=== PATIENT | female | born 2000 | race Caucasian/White ===

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

== ENCOUNTER 2022-04-25 16:11 | Emergency (ER) | payer OTHER ==
[2022-04-25 16:28] VITALS: RESP 16
--- NOTE | 2022-04-25 17:22 | ED ---
Psych HPI - General Source: patient, family Mode of arrival: ambulatory <Harper Harkins - Last Filed: 04/25/22 17:19> - General Source: RN notes reviewed, old records reviewed <Lyle Ward - Last Filed: 04/25/22 20:45> <GerardodionAdalberto - Last Filed: 04/25/22 22:40> - General Chief Complaint: Psychiatric Symptoms Stated Complaint: Mental health eval Time Seen by Provider: 04/25/22 18:50 - History of Present Illness Initial Comments: Patient is a 21 year old female who presents to the emergency department for psychiatric evaluation. Patient reports anxiety and depression for years with worsening the past couple weeks. Admits to SI without plan or intention. No HI. No visual or auditory hallucinations. No alcohol, tobacco, or illicit drug use. Patient currently being treated for UTI with abx. Symptoms improving. No fever, chills, abdominal pain, nausea, vomiting. (Harper Harkins) This is a 21-year-old female presents emergency department because she got upset at home said she was suicidal and said she would be better off . Patient did kick and punch a hole in the wall. Patient states she's never attempted suicide in the past. And they brought her into the emergency department. Patient states she has been diagnosed with depression and anxiety but she's not been treated for it. Patient states she does see a counselor. Patient states she was recently diagnosed with urinary tract infection and possibly could be though she did just have a period 4 days ago. Patient denies any fever chills or cough per patient denies any headache. Patient denies any abdominal pain patient denies any chest pain patient denies any difficulty breathing. (Lyle Ward) - Related Data Home Medications Medication Instructions Recorded Confirmed Cephalexin [Keflex] 1,000 mg PO Q12HR 04/25/22 04/25/22 Allergies Allergy/AdvReac Type Severity Reaction Status Date / Time shellfish derived [Shellfish] Allergy Anaphylaxis Verified 04/25/22 20:20 Review of Systems ROS Other: All systems not noted in ROS Statement are negative. <Harper Harkins - Last Filed: 04/25/22 17:19> ROS Other: All systems not noted in ROS Statement are negative. <Lyle Ward - Last Filed: 04/25/22 20:45> ROS Other: All systems not noted in ROS Statement are negative. <Adalberto Newman - Last Filed: 04/25/22 22:40> ROS Statement: Those systems with pertinent positive or pertinent negative responses have been documented in the HPI. Past Medical History Past Medical History: No Reported History History of Any Multi-Drug Resistant Organisms: None Reported Past Surgical History: No Surgical Hx Reported Past Psychological History: No Psychological Hx Reported Smoking Status: Never smoker Past Alcohol Use History: None Reported Past Drug Use History: None Reported <ShahanaHarper - Last Filed: 04/25/22 17:19> General Exam Limitations: no limitations <Harper Harkins - Last Filed: 04/25/22 17:19> <Lyle Ward - Last Filed: 04/25/22 20:45> - General Exam Comments Initial Comments: GENERAL: Patient is well-developed and well-nourished. Patient is nontoxic and well- hydrated and is in no acute distress. ENT: Neck is soft and supple. No significant lymphadenopathy is noted. Oropharynx is clear. Moist mucous membranes. Neck has full range of motion without eliciting any pain. EYES: The sclera were anicteric and conjunctiva were pink and moist. Extraocular movements were intact and pupils were equal round and reactive to light. Eyelids were unremarkable. PULMONARY: Unlabored respirations. Good breath sounds bilaterally. No audible rales rhonchi or wheezing was noted. CARDIOVASCULAR: There is a regular rate and rhythm without any murmurs gallops or rubs. ABDOMEN: Soft and nontender with normal bowel sounds. SKIN: Skin is clear with no lesions or rashes and otherwise unremarkable. NEUROLOGIC: Patient is alert and oriented x3. Cranial nerves II through XII are grossly intact. Motor and sensory are also intact. Normal speech, volume and content. Symmetrical smile. MUSCULOSKELETAL: Normal extremities with adequate strength and full range of motion. LYMPHATICS: No significant lymphadenopathy is noted PSYCHIATRIC: Patient states she's not suicidal now but she did make statements earlier and does occasionally feel suicidal (Lyle Ward) Course Vital Signs 04/25/22 16:25 Temperature 98.5 F Pulse Rate 83 Respiratory 16 Rate Blood Pressure 153/80 O2 Sat by Pulse 98 Oximetry Medical Decision Making <Lyle Ward - Last Filed: 04/25/22 20:45> <Adalberto Newman - Last Filed: 04/25/22 22:40> - Medical Decision Making Dr. Taylor will be taking over the care of this patient at 9 PM (Lyle Ward) Patient has had EPS evaluation and deemed stable for continued outpatient care. They have developed safety plan. Patient will return should there be any difficulty. (Adalberto Newman) - Lab Data Lab Results 04/25/22 04/25/22 Range/Units 19:10 19:10 Urine Color Yellow Urine Appearance Cloudy H (Clear) Urine pH 6.0 (5.0-8.0) Ur Specific [place] 1.020 (1.001-1.035) Urine Protein Trace H (Negative) Urine Glucose (UA) Negative (Negative) Urine Ketones 2+ H (Negative) Urine Blood Large H (Negative) Urine Nitrite Negative (Negative) Urine Bilirubin Negative (Negative) Urine Urobilinogen <2.0 (<2.0) mg/dL Ur Leukocyte Esterase Moderate H (Negative) Urine RBC >182 H (0-5) /hpf Urine WBC 11 H (0-5) /hpf Ur Squamous Epith Cells 12 H (0-4) /hpf Urine Mucus Moderate H (None) /hpf Urine HCG, Qual Not Detected (Not Detectd) Disposition <Harper Harkins - Last Filed: 04/25/22 17:19> <Lyle Ward - Last Filed: 04/25/22 20:45> Is patient prescribed a controlled substance at d/c from ED?: No <Adalberto Newman - Last Filed: 04/25/22 22:40> Clinical Impression: Mood disorder Disposition: HOME SELF-CARE Condition: Good Instructions (If sedation given, give patient instructions): Mood Disorders (ED) Referrals: Mathew El DO [Primary Care Provider] - 1-2 days
[2022-04-25 19:38] LABS: Appearance,Urine Cloudy (Clear); Bilirubin,Urine Negative (Negative); Blood,Urine Large (Negative); Color,Urine Yellow; Glucose,Urine (UA) Negative (Negative); Ketones,Urine 2+ (Negative); Leukocyte Esterase,Urine Moderate (Negative); Mucus,Urine Moderate /hpf; Nitrite,Urine Negative (Negative); Protein,Urine Trace (Negative); RBC,Urine >182 /hpf (0-5); Squamous Epithelial Cell,Urine 12 /hpf (0-4); Urobilinogen,Urine <2.0 mg/dL (<2.0); WBC,Urine 11 /hpf (0-5)
[2022-04-25] MEDS ORDERED: CEPHALEXIN 500 MG CAP PO STA (20:01)
[2022-04-25 22:50] VITALS: BP 129/78; PULSE 79; TEMP 98.4
== END 2022-04-25 22:50 | disposition home or self-care (01) ==
LOC: EC 16:11
DX: F39 Unspecified mood [affective] disorder (principal); Z91.013 Allergy to seafood
CPT/HCPCS: 81001; 81025; 82075; 87086; 99285

== ENCOUNTER 2022-07-28 04:57 | Emergency (ER) | payer BC, OTHER ==
[2022-07-28 05:05] VITALS: RESP 16; TEMP 98
[2022-07-28] MEDS ORDERED: SODIUM CHLORIDE 0.9% 1,000 ML IV STA (05:25)
[2022-07-28 05:55] LABS: Basophils % (A) 0 %; Eosinophils # (A) 0.1 k/uL (0-0.7); Eosinophils % (A) 1 %; HCT 38.9 % (34.0-46.0); HGB 13.7 gm/dL (11.4-16.0); Lymphocytes % (A) 12 %; MCH 32.1 pg (25.0-35.0); MCHC 35.3 g/dL (31.0-37.0); Mean Platelet Volume 7.6; Monocytes # (A) 0.2 k/uL (0-1.0); Monocytes % (A) 3 %; Neutrophils # (A) 6.9 k/uL (1.3-7.7); Neutrophils % (A) 83 %; Platelet Count 277 k/uL (150-450); RBC 4.27 m/uL (3.80-5.40); RDW 12.1 % (11.5-15.5); WBC 8.2 k/uL (4.0-11.0)
[2022-07-28 06:05] LABS: ALT 20 U/L (4-34); AST 24 U/L (14-36); African American GFR (CKD) >90 (>60 ml/min/1.73 sqM); Albumin 4.3 g/dL (3.5-5.0); Alcohol <10 mg/dL; Alkaline Phosphatase 59 U/L (38-126); Anion Gap 12 mmol/L; Blood Urea Nitrogen 7 mg/dL (7-17); Calcium 9.1 mg/dL (8.4-10.2); Carbon Dioxide 21 mmol/L (22-30); Chloride 106 mmol/L (98-107); Creatine Kinase 55 U/L (30-135); Glucose 118 mg/dL (74-99); Magnesium 1.9 mg/dL (1.6-2.3); Non-African American GFR(CKD) >90 (>60 ml/min/1.73 sqM); Sodium 139 mmol/L (137-145); Total Bilirubin 0.5 mg/dL (0.2-1.3)
[2022-07-28 06:08] LABS: Amorphous Sediment,Urine Few /hpf; Appearance,Urine Cloudy (Clear); Bacteria,Urine Occasional /hpf; Bilirubin,Urine Negative (Negative); Blood,Urine Negative (Negative); Color,Urine Yellow; Glucose,Urine (UA) Negative (Negative); Hyaline Casts,Urine 2 /lpf (0-2); Ketones,Urine Negative (Negative); Leukocyte Esterase,Urine Large (Negative); Mucus,Urine Moderate /hpf; Nitrite,Urine Negative (Negative); Protein,Urine Trace (Negative); RBC,Urine 2 /hpf (0-5); Specific Gravity,Urine 1.012 (1.001-1.035); Squamous Epithelial Cell,Urine 13 /hpf (0-4); Urobilinogen,Urine <2.0 mg/dL (<2.0); WBC,Urine 19 /hpf (0-5)
--- NOTE | 2022-07-28 06:29 | ED ---
General Adult HPI - General Chief complaint: Seizure Stated complaint: Seizure Time Seen by Provider: 07/28/22 05:00 Source: patient Mode of arrival: ambulatory - History of Present Illness Initial comments: 22 year old female presents after an episode of altered mental status. States that she was using shrooms tonight and he friend witnessed her go unconscious. No trauma from passing out. There was no shaking. She was only out for a few seconds. She denies using any other drugs. Denies concern for . No history of seizures. Denies chest pain or shortness of breath. - Related Data Home Medications Medication Instructions Recorded Confirmed Cephalexin [Keflex] 1,000 mg PO Q12HR 04/25/22 04/25/22 Allergies Allergy/AdvReac Type Severity Reaction Status Date / Time shellfish derived [Shellfish] Allergy Anaphylaxis Verified 07/28/22 05:05 Review of Systems ROS Statement: Those systems with pertinent positive or pertinent negative responses have been documented in the HPI. ROS Other: All systems not noted in ROS Statement are negative. Past Medical History Past Medical History: Syncope History of Any Multi-Drug Resistant Organisms: None Reported Past Surgical History: No Surgical Hx Reported Past Psychological History: No Psychological Hx Reported Smoking Status: Never smoker Past Alcohol Use History: Rare Past Drug Use History: Marijuana General Exam General appearance: alert, in no apparent distress Head exam: Present: atraumatic, normocephalic, normal inspection Eye exam: Present: normal appearance, PERRL, EOMI. Absent: scleral icterus, conjunctival injection, periorbital swelling ENT exam: Present: normal exam, mucous membranes moist Neck exam: Present: normal inspection. Absent: tenderness, meningismus, lymphadenopathy Respiratory exam: Present: normal lung sounds bilaterally. Absent: respiratory distress, wheezes, rales, rhonchi, stridor Cardiovascular Exam: Present: regular rate, normal rhythm, normal heart sounds. Absent: systolic murmur, diastolic murmur, rubs, gallop, clicks GI/Abdominal exam: Present: soft, normal bowel sounds. Absent: distended, tenderness, guarding, rebound, rigid Extremities exam: Present: normal inspection, full ROM, normal capillary refill. Absent: tenderness, pedal edema, joint swelling, calf tenderness Back exam: Present: normal inspection Neurological exam: Present: alert, oriented X3, CN II-XII intact Psychiatric exam: Present: normal affect, normal mood Skin exam: Present: warm, dry, intact, normal color. Absent: rash Course Vital Signs 07/28/22 07/28/22 04:58 07:10 Temperature 98.0 F Pulse Rate 80 85 Respiratory 16 16 Rate Blood Pressure 116/81 119/68 O2 Sat by Pulse 99 98 Oximetry EKG Findings - EKG Comments: EKG Findings:: EKG demonstrates sinus rhythm with a rate of 76. IA interval 142. QRS 81. QTC of 412. No acute ST segment elevations or depressions Medical Decision Making - Medical Decision Making Was pt. sent in by a medical professional or institution (, HUNTER, DIRECTOR HEART, urgent care, hospital, or snf...) When possible be specific @ -No Did you speak to anyone other than the patient for history (EMS, parent, family, police, friend...)? What history was obtained from this source @ -Patients friend at bedside Did you review nursing and triage notes (agree or disagree)? Why? @ -I reviewed and agree with nursing and triage notes Were old charts reviewed (outside hosp., previous admission, EMS record, old EKG, old radiological studies, urgent care reports/EKG's, snf records)? Report findings @ -No old charts were reviewed Differential Diagnosis (chest pain, altered mental status, abdominal pain women, abdominal pain men, vaginal bleeding, weakness, fever, dyspnea, syncope, headache, dizziness, GI bleed, back pain, seizure, CVA, palpatations, mental health, musculoskeletal)? @ -seizure, syncope, near syncope, drug overdose EKG interpreted by me (3pts min.). @ -Yes X-rays interpreted by me (1pt min.). @ -No CT interpreted by me (1pt min.). @ -No U/S interpreted by me (1pt. min.). @ -None done What testing was considered but not performed or refused? (CT, X-rays, U/S, labs)? Why? @ -None What meds were considered but not given or refused? Why? @ -None Did you discuss the management of the patient with other professionals (professionals i.e. HUNTER Snell, DIRECTOR HEART, lab, RT, psych nurse, social services designee, engraver copperplate, teacher, dispatch officer, business case analyst)? Give summary @ -No Was smoking cessation discussed for >3mins.? @ -No Was critical care preformed (if so, how long)? @ -No Were there social determinants of health that impacted care today? How? (Ho melessness, low income, unemployed, alcoholism, drug addiction, transportation, low edu. Level, literacy, decrease access to med. care, fpc, rehab)? @ -No Was there de-escalation of care discussed even if they declined (Discuss DNR or withdrawal of care, Hospice)? DNR status @ -No What co-morbidities impacted this encounter? (DM, HTN, Smoking, COPD, CAD, Cancer, CVA, ARF, Chemo, Hep., AIDS, mental health diagnosis, sleep apnea, morbid obesity)? @ -None Was patient admitted / discharged? Hospital course, mention meds given and route, prescriptions, significant lab abnormalities, going to OR and other pertinent info. @ -Discharged. Instructed not to drive. Needs to follow up with PCP for further workup Undiagnosed new problem with uncertain prognosis? @ -yes Drug Therapy requiring intensive monitoring for toxicity (Heparin, Nitro, Insulin, Cardizem)? @ -No Were any procedures done? @ -No Diagnosis/symptom? @ -acute syncope, hallucinogen use Acute, or Chronic, or Acute on Chronic? @ -acute Uncomplicated (without systemic symptoms) or Complicated (systemic symptoms)? @ -complicated Side effects of treatment? @ -No Exacerbation, Progression, or Severe Exacerbation? @ -No Poses a threat to life or bodily function? How? (Chest pain, [place], [place], pneumonia, PE, COPD, DKA, ARF, appy, cholecystitis, CVA, Diverticulitis, Homicidal, Suic idal, threat to staff... and all critical care pts) @ -yes - Lab Data Result diagrams: 07/28/22 05:45 07/28/22 05:45 Lab Results 07/28/22 07/28/22 07/28/22 Range/Units 05:45 05:45 05:45 WBC 8.2 (4.0-11.0) k/uL RBC 4.27 (3.80-5.40) m/uL Hgb 13.7 (11.4-16.0) gm/dL Hct 38.9 (34.0-46.0) % MCV 91.0 (80.0-100.0) fL MCH 32.1 (25.0-35.0) pg MCHC 35.3 (31.0-37.0) g/dL RDW 12.1 (11.5-15.5) % Plt Count 277 (150-450) k/uL MPV 7.6 Neutrophils % 83 % Lymphocytes % 12 % Monocytes % 3 % Eosinophils % 1 % Basophils % 0 % Neutrophils # 6.9 (1.3-7.7) k/uL Lymphocytes # 1.0 (1.0-4.8) k/uL Monocytes # 0.2 (0-1.0) k/uL Eosinophils # 0.1 (0-0.7) k/uL Basophils # 0.0 (0-0.2) k/uL Sodium 139 (137-145) mmol/L Potassium 4.0 (3.5-5.1) mmol/L Chloride 106 (98-107) mmol/L Carbon Dioxide 21 L (22-30) mmol/L Anion Gap 12 mmol/L BUN 7 (7-17) mg/dL Creatinine 0.46 L (0.52-1.04) mg/dL Est GFR (CKD-EPI)AfAm >90 (>60 ml/min/1.73 sqM) Est GFR (CKD-EPI)NonAf >90 (>60 ml/min/1.73 sqM) Glucose 118 H (74-99) mg/dL Lactic Ac Sepsis Rflx Plasma Lactic Acid Sunday 2.1 H* (0.7-2.0) mmol/L Calcium 9.1 (8.4-10.2) mg/dL Magnesium 1.9 (1.6-2.3) mg/dL Total Bilirubin 0.5 (0.2-1.3) mg/dL AST 24 (14-36) U/L ALT 20 (4-34) U/L Alkaline Phosphatase 59 (38-126) U/L Creatine Kinase 55 (30-135) U/L Total Protein 7.0 (6.3-8.2) g/dL Albumin 4.3 (3.5-5.0) g/dL Urine Color Urine Appearance (Clear) Urine pH (5.0-8.0) Ur Specific [place] (1.001-1.035) Urine Protein (Negative) Urine Glucose (UA) (Negative) Urine Ketones (Negative) Urine Blood (Negative) Urine Nitrite (Negative) Urine Bilirubin (Negative) Urine Urobilinogen (<2.0) mg/dL Ur Leukocyte Esterase (Negative) Urine RBC (0-5) /hpf Urine WBC (0-5) /hpf Ur Squamous Epith Cells (0-4) /hpf Amorphous Sediment (None) /hpf Urine Bacteria (None) /hpf Hyaline Casts (0-2) /lpf Urine Mucus (None) /hpf Urine HCG, Qual (Not Detectd) Urine Opiates Screen (NotDetected) Ur Oxycodone Screen (NotDetected) Urine Methadone Screen (NotDetected) Ur Propoxyphene Screen (NotDetected) Ur Barbiturates Screen (NotDetected) U Tricyclic Antidepress (NotDetected) Ur Phencyclidine Scrn (NotDetected) Ur Amphetamines Screen (NotDetected) U Methamphetamines Scrn (NotDetected) U Benzodiazepines Scrn (NotDetected) Urine Cocaine Screen (NotDetected) U Marijuana (THC) Screen (NotDetected) Serum Alcohol <10 mg/dL 07/28/22 07/28/22 07/28/22 Range/Units 05:46 05:46 06:13 WBC (4.0-11.0) k/uL RBC (3.80-5.40) m/uL Hgb (11.4-16.0) gm/dL Hct (34.0-46.0) % MCV (80.0-100.0) fL MCH (25.0-35.0) pg MCHC (31.0-37.0) g/dL RDW (11.5-15.5) % Plt Count (150-450) k/uL MPV Neutrophils % % Lymphocytes % % Monocytes % % Eosinophils % % Basophils % % Neutrophils # (1.3-7.7) k/uL Lymphocytes # (1.0-4.8) k/uL Monocytes # (0-1.0) k/uL Eosinophils # (0-0.7) k/uL Basophils # (0-0.2) k/uL Sodium (137-145) mmol/L Potassium (3.5-5.1) mmol/L Chloride (98-107) mmol/L Carbon Dioxide (22-30) mmol/L Anion Gap mmol/L BUN (7-17) mg/dL Creatinine (0.52-1.04) mg/dL Est GFR (CKD-EPI)AfAm (>60 ml/min/1.73 sqM) Est GFR (CKD-EPI)NonAf (>60 ml/min/1.73 sqM) Glucose (74-99) mg/dL Lactic Ac Sepsis Rflx Y Plasma Lactic Acid Sunday (0.7-2.0) mmol/L Calcium (8.4-10.2) mg/dL Magnesium (1.6-2.3) mg/dL Total Bilirubin (0.2-1.3) mg/dL AST (14-36) U/L ALT (4-34) U/L Alkaline Phosphatase (38-126) U/L Creatine Kinase (30-135) U/L Total Protein (6.3-8.2) g/dL Albumin (3.5-5.0) g/dL Urine Color Yellow Urine Appearance Cloudy H (Clear) Urine pH 7.0 (5.0-8.0) Ur Specific [place] 1.012 (1.001-1.035) Urine Protein Trace H (Negative) Urine Glucose (UA) Negative (Negative) Urine Ketones Negative (Negative) Urine Blood Negative (Negative) Urine Nitrite Negative (Negative) Urine Bilirubin Negative (Negative) Urine Urobilinogen <2.0 (<2.0) mg/dL Ur Leukocyte Esterase Large H (Negative) Urine RBC 2 (0-5) /hpf Urine WBC 19 H (0-5) /hpf Ur Squamous Epith Cells 13 H (0-4) /hpf Amorphous Sediment Few H (None) /hpf Urine Bacteria Occasional H (None) /hpf Hyaline Casts 2 (0-2) /lpf Urine Mucus Moderate H (None) /hpf Urine HCG, Qual Not Detected (Not Detectd) Urine Opiates Screen Not Detected (NotDetected) Ur Oxycodone Screen Not Detected (NotDetected) Urine Methadone Screen Not Detected (NotDetected) Ur Propoxyphene Screen Not Detected (NotDetected) Ur Barbiturates Screen Not Detected (NotDetected) U Tricyclic Antidepress Not Detected (NotDetected) Ur Phencyclidine Scrn Not Detected (NotDetected) Ur Amphetamines Screen Not Detected (NotDetected) U Methamphetamines Scrn Not Detected (NotDetected) U Benzodiazepines Scrn Not Detected (NotDetected) Urine Cocaine Screen Not Detected (NotDetected) U Marijuana (THC) Screen Detected H (NotDetected) Serum Alcohol mg/dL 07/28/22 Range/Units 08:25 WBC (4.0-11.0) k/uL RBC (3.80-5.40) m/uL Hgb (11.4-16.0) gm/dL Hct (34.0-46.0) % MCV (80.0-100.0) fL MCH (25.0-35.0) pg MCHC (31.0-37.0) g/dL RDW (11.5-15.5) % Plt Count (150-450) k/uL MPV Neutrophils % % Lymphocytes % % Monocytes % % Eosinophils % % Basophils % % Neutrophils # (1.3-7.7) k/uL Lymphocytes # (1.0-4.8) k/uL Monocytes # (0-1.0) k/uL Eosinophils # (0-0.7) k/uL Basophils # (0-0.2) k/uL Sodium (137-145) mmol/L Potassium (3.5-5.1) mmol/L Chloride (98-107) mmol/L Carbon Dioxide (22-30) mmol/L Anion Gap mmol/L BUN (7-17) mg/dL Creatinine (0.52-1.04) mg/dL Est GFR (CKD-EPI)AfAm (>60 ml/min/1.73 sqM) Est GFR (CKD-EPI)NonAf (>60 ml/min/1.73 sqM) Glucose (74-99) mg/dL Lactic Ac Sepsis Rflx Plasma Lactic Acid Sunday 1.1 (0.7-2.0) mmol/L Calcium (8.4-10.2) mg/dL Magnesium (1.6-2.3) mg/dL Total Bilirubin (0.2-1.3) mg/dL AST (14-36) U/L ALT (4-34) U/L Alkaline Phosphatase (38-126) U/L Creatine Kinase (30-135) U/L Total Protein (6.3-8.2) g/dL Albumin (3.5-5.0) g/dL Urine Color Urine Appearance (Clear) Urine pH (5.0-8.0) Ur Specific [place] (1.001-1.035) Urine Protein (Negative) Urine Glucose (UA) (Negative) Urine Ketones (Negative) Urine Blood (Negative) Urine Nitrite (Negative) Urine Bilirubin (Negative) Urine Urobilinogen (<2.0) mg/dL Ur Leukocyte Esterase (Negative) Urine RBC (0-5) /hpf Urine WBC (0-5) /hpf Ur Squamous Epith Cells (0-4) /hpf Amorphous Sediment (None) /hpf Urine Bacteria (None) /hpf Hyaline Casts (0-2) /lpf Urine Mucus (None) /hpf Urine HCG, Qual (Not Detectd) Urine Opiates Screen (NotDetected) Ur Oxycodone Screen (NotDetected) Urine Methadone Screen (NotDetected) Ur Propoxyphene Screen (NotDetected) Ur Barbiturates Screen (NotDetected) U Tricyclic Antidepress (NotDetected) Ur Phencyclidine Scrn (NotDetected) Ur Amphetamines Screen (NotDetected) U Methamphetamines Scrn (NotDetected) U Benzodiazepines Scrn (NotDetected) Urine Cocaine Screen (NotDetected) U Marijuana (THC) Screen (NotDetected) Serum Alcohol mg/dL Disposition Clinical Impression: Syncope Disposition: HOME SELF-CARE Condition: Stable Instructions (If sedation given, give patient instructions): Syncope (ED) Additional Instructions: Please follow-up with your primary care doctor your scheduled appointment. I recommend seeing a neurologist for your symptoms. Return for any new or worsening symptoms Is patient prescribed a controlled substance at d/c from ED?: No Referrals: Mathew El DO [Primary Care Provider] - 1-2 days Ubaldo Sr MD [REFERRING] - 1-2 days Milind Hidalgo DO [STAFF PHYSICIAN] - 1-2 days Benedicto Felton MD [STAFF PHYSICIAN] - 1-2 days Time of Disposition: 08:23
[2022-07-28 06:49] LABS: Amphetamine Screen,Urine Not Detected (NotDetected); Barbiturate Screen,Urine Not Detected (NotDetected); Benzodiazepines Screen,Urine Not Detected (NotDetected); Cocaine Screen,Urine Not Detected (NotDetected); Methadone Screen, Urine Not Detected (NotDetected); Opiate Screen,Urine Not Detected (NotDetected); Oxycodone Screen, Urine Not Detected (NotDetected); Phencyclidine Screen,Urine Not Detected (NotDetected); Tricyclic Antidepressant,Urine Not Detected (NotDetected); Urn Cannabinoid Scrn Detected (NotDetected)
[2022-07-28 07:16] VITALS: BP 119/68; PULSE 85
== END 2022-07-28 08:42 | disposition home or self-care (01) ==
LOC: EC 04:57
DX: R55 Syncope and collapse (principal); F12.90 Cannabis use, unspecified, uncomplicated; Z91.013 Allergy to seafood
CPT/HCPCS: 36415; 80053; 80306; 80320; 81001; 81025; 82550; 83605; 83735; 85025; 87086; 93005; 96360; 96361; 99284; 99285

== ENCOUNTER → 2022-11-07 | Outpatient (CLI) | payer BC ==
--- NOTE | 2022-11-07 10:55 | MR ---
EXAMINATION TYPE: MR brain wo/w con DATE OF EXAM: 11/07/2022 COMPARISON: None HISTORY: Abnormal EEG, Seizure TECHNIQUE: Multiplanar, multisequence images of the brain and brainstem is performed without and with IV contras t, utilizing 6 mL intravenous Gadavist . FINDINGS: Diffusion weighted images demonstrate no evidence of a recent infarct or other diffusion ab normality. There is no extra-axial fluid collection or significant white matter signal abnormality. There is a nonspecific area of abnormal signal in the adali on T2 is less apparent FLAIR imaging. 2 sm all to characterize. The ventricular system and cisternal spaces are normal in size and appearance. The brain volume is age appropriate. Midline structures demonstrate normal morphology. Cerebellar tonsils are low-lying position approxima tely 1 to 2 mm below the foramen magnum. No tonsillar beaking. Post contrast images demonstrate no abnormal enhancement. The dural venous sinuses appear patent. The visualized sinuses are compatible with mild chronic sinusitis. And the globes are intact. A benign s ubcentimeter Thornwaldt cyst in the nasopharynx. IMPRESSION: 1. Low-lying cerebellar tonsils measuring approximately 1 to 2 mm below the foramen magnum. No tonsil lar beaking. Correlate for history of headaches and Chiari malformation. 2. No pathologic enhancement or enhancing mass. 3. Subcentimeter nonspecific focus of abnormal signal involving the adali seen on T2 imaging only. Pro bably artifactual. Tiny area of remote ischemia not entirely excluded.
== END | disposition home or self-care (01) ==
LOC: RADMRIMAIN 09:20
PROVIDERS: ATTEND Psychiatry & Neurology Neurology
DX: G40.89 Other seizures (principal); G93.89 Other specified disorders of brain
CPT/HCPCS: 70553; A9585

== ENCOUNTER 2023-01-26 18:14 | Inpatient (IN) | payer BC ==
[2023-01-26 19:26] LABS: Appearance,Urine Clear (Clear); Bilirubin,Urine Negative (Negative); Blood,Urine Negative (Negative); Color,Urine Colorless; Glucose,Urine (UA) Negative (Negative); Ketones,Urine Negative (Negative); Leukocyte Esterase,Urine Negative (Negative); Nitrite,Urine Negative (Negative); Protein,Urine Negative (Negative); Specific Gravity,Urine 1.001 (1.001-1.035); Urobilinogen,Urine <2.0 mg/dL (<2.0)
[2023-01-26 19:48] LABS: Amphetamine Screen,Urine Not Detected (NotDetected); Barbiturate Screen,Urine Not Detected (NotDetected); Benzodiazepines Screen,Urine Not Detected (NotDetected); Cocaine Screen,Urine Not Detected (NotDetected); Methadone Screen, Urine Not Detected (NotDetected); Opiate Screen,Urine Not Detected (NotDetected); Oxycodone Screen, Urine Not Detected (NotDetected); Phencyclidine Screen,Urine Not Detected (NotDetected); Tricyclic Antidepressant,Urine Not Detected (NotDetected); Urn Cannabinoid Scrn Detected (NotDetected)
--- NOTE | 2023-01-26 20:09 | ED ---
Psych HPI - General Chief Complaint: Psychiatric Symptoms Stated Complaint: Mental Health Time Seen by Provider: 01/26/23 18:42 Source: patient, family, RN notes reviewed, old records reviewed Mode of arrival: ambulatory Limitations: no limitations - History of Present Illness Initial Comments: This is a 22-year-old female DF for evaluation. Patient presents for sadness distress. Tearful during questioning. Patient states she is suicidal today has been for about a week no significant change in life. Does admit to some alcohol use. No prior history of suicide or suicidal thoughts but is suicidal today MD Complaint: suicidal ideation, feels depressed -: week(s) Associated Psychiatric Symptoms: depression, suicidal ideation History of same: Yes Quality: getting worse Improves With: none Worsens With: none Context: significant life stressor Associated Symptoms: denies other symptoms Treatments Prior to Arrival: placed on mental health hold - Related Data Home Medications Medication Instructions Recorded Confirmed Propranolol [Inderal] 10 mg PO DAILY@1300 01/26/23 01/26/23 Allergies Allergy/AdvReac Type Severity Reaction Status Date / Time Iodinated Contrast Media Allergy Anaphylaxis Verified 01/26/23 19:05 shellfish derived [Shellfish] Allergy Anaphylaxis Verified 01/26/23 19:05 aripiprazole [From Abilify] AdvReac numbness Verified 01/26/23 19:05 Review of Systems ROS Statement: Those systems with pertinent positive or pertinent negative responses have been documented in the HPI. ROS Other: All systems not noted in ROS Statement are negative. Past Medical History Past Medical History: Syncope History of Any Multi-Drug Resistant Organisms: None Reported Past Surgical History: No Surgical Hx Reported Additional Past Surgical History / Comment(s): GI Scope Past Psychological History: No Psychological Hx Reported Smoking Status: Never smoker Past Alcohol Use History: Occasional Past Drug Use History: Marijuana General Exam Limitations: no limitations General appearance: alert, in no apparent distress Head exam: Present: atraumatic, normocephalic, normal inspection Eye exam: Present: normal appearance, PERRL, EOMI. Absent: scleral icterus, conjunctival injection, periorbital swelling ENT exam: Present: normal exam, mucous membranes moist Neck exam: Present: normal inspection. Absent: tenderness, meningismus, lymphadenopathy Respiratory exam: Present: normal lung sounds bilaterally. Absent: respiratory distress, wheezes, rales, rhonchi, stridor Cardiovascular Exam: Present: regular rate, normal rhythm, normal heart sounds. Absent: systolic murmur, diastolic murmur, rubs, gallop, clicks GI/Abdominal exam: Present: soft, normal bowel sounds. Absent: distended, tenderness, guarding, rebound, rigid Extremities exam: Present: normal inspection, full ROM, normal capillary refill. Absent: tenderness, pedal edema, joint swelling, calf tenderness Back exam: Present: normal inspection Neurological exam: Present: alert, oriented X3, CN II-XII intact Psychiatric exam: Present: normal affect, normal mood Skin exam: Present: warm, dry, intact, normal color. Absent: rash Course Vital Signs 01/26/23 18:31 Temperature 98.2 F Pulse Rate 71 Respiratory 18 Rate Blood Pressure 137/88 - Reevaluation(s) Reevaluation #1: 01/26/23 22:23 Medical records reviewed Reevaluation #2: 01/26/23 22:24 Medical clear for psychiatric evaluation Medical Decision Making - Medical Decision Making 22 female to the emergency department for evaluation today. Patient seen evaluation psychiatry here in the ER patient be admitted for psychiatric evaluation and treatment - Lab Data Lab Results 01/26/23 01/26/23 Range/Units 19:04 19:04 Urine Color Colorless Urine Appearance Clear (Clear) Urine pH 7.0 (5.0-8.0) Ur Specific [place] 1.001 (1.001-1.035) Urine Protein Negative (Negative) Urine Glucose (UA) Negative (Negative) Urine Ketones Negative (Negative) Urine Blood Negative (Negative) Urine Nitrite Negative (Negative) Urine Bilirubin Negative (Negative) Urine Urobilinogen <2.0 (<2.0) mg/dL Ur Leukocyte Esterase Negative (Negative) Urine Opiates Screen Not Detected (NotDetected) Ur Oxycodone Screen Not Detected (NotDetected) Urine Methadone Screen Not Detected (NotDetected) Ur Propoxyphene Screen Not Detected (NotDetected) Ur Barbiturates Screen Not Detected (NotDetected) U Tricyclic Antidepress Not Detected (NotDetected) Ur Phencyclidine Scrn Not Detected (NotDetected) Ur Amphetamines Screen Not Detected (NotDetected) U Methamphetamines Scrn Not Detected (NotDetected) U Benzodiazepines Scrn Not Detected (NotDetected) Urine Cocaine Screen Not Detected (NotDetected) U Marijuana (THC) Screen Detected H (NotDetected) Disposition Clinical Impression: Depression, Acute anxiety, Suicidal ideation, Adjustment reaction of adult life Disposition: TRANSFER TO PSYCH HOSP/UNIT Condition: Fair Is patient prescribed a controlled substance at d/c from ED?: No Referrals: Mathew El DO [Primary Care Provider] - 1-2 days
[2023-01-27] MEDS ORDERED: IBUPROFEN 400 MG TAB PO STA ×2 (01:04→01:32)
[2023-01-27] MEDS ORDERED: IBUPROFEN 400 MG TAB PO ONE (01:35)
[2023-01-27] MEDS: MELATONIN 3 MG TABLET PO SCH ×2 (02:42→20:29)
[2023-01-27] MEDS ORDERED: IBUPROFEN 600 MG TAB PO STA (09:50)
--- NOTE | 2023-01-27 10:19 | XR ---
EXAMINATION TYPE: XR hand complete RT DATE OF EXAM: 01/27/2023 10:12 AM INDICATION: Patient age:Female; 22 years old; Reason for study: right hand swelling; PHH. COMPARISON: None TECHNIQUE: Frontal, lateral and oblique views of the right hand were obtained. FINDINGS: Normal alignment of the visualized joints. No acute osseous pathology is identified. No o sseous erosions. Mild soft tissue swelling of the dorsal aspect of the fifth MCP joint. No radiopaque foreign body. IMPRESSION: 1. No acute osseous pathology. 2. Mild soft tissue swelling over the dorsal aspect of the fifth MCP joint.
[2023-01-27] MEDS ORDERED: LORazepam 1 MG TAB PO STA (14:09)
[2023-01-27] MEDS ORDERED: MAG HYDROX/AL HYDROX/SIMETH 30 ML CUP PO PRN (16:19)
[2023-01-27] MEDS ORDERED: ACETAMINOPHEN TAB 325 MG TAB PO PRN (16:19)
[2023-01-27] MEDS ORDERED: MAGNESIUM HYDROXIDE 2,400 MG/30 ML CUP PO PRN (16:19)
[2023-01-27] MEDS ORDERED: LORazepam 2 MG/ML INJ IM PRN (16:19)
[2023-01-27] MEDS ORDERED: IBUPROFEN 600 MG TAB PO PRN (16:19)
[2023-01-27] MEDS ORDERED: MELATONIN 5 MG TABLET PO PRN (16:27)
[2023-01-27] MEDS: NICOTINE 14MG/24HR PATCH TRANSDERM SCH (18:31)
[2023-01-27] MEDS: LORazepam 1 MG TAB PO PRN (19:27)
[2023-01-27] MEDS ORDERED: HALOPERIDOL LACTATE 5 MG/ML 1 ML VIAL IM PRN (20:21)
[2023-01-27] MEDS ORDERED: haloperidoL 5 MG TAB PO PRN (20:21)
[2023-01-28 01:10] VITALS: RESP 16
[2023-01-28 07:01] VITALS: TEMP 98.2
[2023-01-28] MEDS: LORazepam 1 MG TAB PO PRN (08:24)
[2023-01-28] MEDS: NICOTINE 14MG/24HR PATCH TRANSDERM SCH (08:24)
[2023-01-28 11:53] LABS: Basophils % (A) 0 %; Eosinophils # (A) 0.1 k/uL (0-0.7); Eosinophils % (A) 2 %; HCT 39.2 % (34.0-46.0); HGB 13.2 gm/dL (11.4-16.0); Lymphocytes # (A) 1.1 k/uL (1.0-4.8); Lymphocytes % (A) 18 %; MCH 31.9 pg (25.0-35.0); MCHC 33.6 g/dL (31.0-37.0); MCV 94.7 fL (80.0-100.0); Mean Platelet Volume 7.3; Monocytes # (A) 0.3 k/uL (0-1.0); Monocytes % (A) 4 %; Neutrophils # (A) 4.4 k/uL (1.3-7.7); Neutrophils % (A) 74 %; Platelet Count 266 k/uL (150-450); RBC 4.14 m/uL (3.80-5.40); RDW 12.1 % (11.5-15.5); WBC 5.9 k/uL (4.0-11.0)
[2023-01-28 12:10] LABS: ALT 14 U/L (4-34); AST 26 U/L (14-36); African American GFR (CKD) >90 (>60 ml/min/1.73 sqM); Albumin 4.6 g/dL (3.5-5.0); Alkaline Phosphatase 58 U/L (38-126); Anion Gap 10 mmol/L; Blood Urea Nitrogen 10 mg/dL (7-17); Calcium 9.4 mg/dL (8.4-10.2); Carbon Dioxide 24 mmol/L (22-30); Chloride 104 mmol/L (98-107); Glucose 89 mg/dL (74-99); Non-African American GFR(CKD) >90 (>60 ml/min/1.73 sqM); Potassium 4.3 mmol/L (3.5-5.1); Sodium 138 mmol/L (137-145); Total Protein 7.1 g/dL (6.3-8.2)
[2023-01-28] MEDS: PROPRANOLOL 10 MG TAB PO SCH (12:31)
--- NOTE | 2023-01-28 12:53 | P.MDCNMH ---
History of Present Illness H&P Date: 01/28/23 History of present illness; patient 22-year-old lady with past medical history s ignificant for depression who presented to the ER for worsening depression. Patient was very tearful and stated that she was having worsening depression. Patient was having thoughts of hurting herself. Denies any auditory or visual hallucinations. Denies any homicidal thoughts. Because of worsening depression she came to the ER Initial lab work done in the ER showed WBC 5.9, hemoglobin 13.2, platelet count 266, sodium 1:30, potassium 4.3, BUN 10, creatinine 0.5 2 UA negative for any infection Urine toxin positive for marijuana Patient admitted to inpatient psych REVIEW OF SYSTEMS: CONSTITUTIONAL: No fever, no malaise, no fatigue. HEENT: No recent visual problems or hearing problems. Denied any sore throat. CARDIOVASCULAR: No chest pain, orthopnea, PND, no palpitations, no syncope. PULMONARY: No shortness of breath, no cough, no hemoptysis. GASTROINTESTINAL: No diarrhea, no nausea, no vomiting, no abdominal pain. NEUROLOGICAL: No headaches, no weakness, no numbness. HEMATOLOGICAL: Denies any bleeding or petechiae. GENITOURINARY: Denies any burning micturition, frequency, or urgency. MUSCULOSKELETAL/RHEUMATOLOGICAL: Denies any joint pain, swelling, or any muscle pain. ENDOCRINE: Denies any polyuria or polydipsia. The rest of the 14-point review of systems is negative. PHYSICAL EXAMINATION: GENERAL: The patient is alert and oriented x3, not in any acute distress. Well developed, well nourished. HEENT: Pupils are round and equally reacting to light. EOMI. No scleral icterus. No conjunctival pallor. Normocephalic, atraumatic. No pharyngeal erythema. No t hyromegaly. CARDIOVASCULAR: S1 and S2 present. No murmurs, rubs, or gallops. PULMONARY: Chest is clear to auscultation, no wheezing or crackles. ABDOMEN: Soft, nontender, nondistended, normoactive bowel sounds. No palpable organomegaly. MUSCULOSKELETAL: No joint swelling or deformity. EXTREMITIES: No cyanosis, clubbing, or pedal edema. NEUROLOGICAL: Gross neurological examination did not reveal any focal deficits. SKIN: No rashes. Assessment and plan Major depression Suicidal thoughts Monitor vital signs Suicide precautions Elopement precautions Continue psych meds per psychiatry team Labs and medication were reviewed.. Continue same treatment. Continue with symptomatic treatment. Resume home medication. Monitor labs and vitals. DVT and GI prophylaxis. Further recommendations as per clinical course of the patient Dictation was produced using [employer] dictation software. please excuse any grammatical, word or spelling errors. Past Medical History Past Medical History: Syncope Additional Past Medical History / Comment(s): pt reports that she has history of syncope and is getting cardiac workup to determine if this is the cause of syncope. pt reports that she has cardiac stress test and tilt-table test on 01/29/23 and 01/30/23. History of Any Multi-Drug Resistant Organisms: None Reported Past Surgical History: No Surgical Hx Reported Additional Past Surgical History / Comment(s): GI Scope Past Anesthesia/Blood Transfusion Reactions: No Reported Reaction Past Psychological History: Anxiety, Depression Smoking Status: Vaper Past Alcohol Use History: None Reported Past Drug Use History: Marijuana Medications and Allergies Home Medications Medication Instructions Recorded Confirmed Type Propranolol [Inderal] 10 mg PO DAILY@1300 01/26/23 01/26/23 History Allergies Allergy/AdvReac Type Severity Reaction Status Date / Time Iodinated Contrast Media Allergy Anaphylaxis Verified 01/26/23 19:05 shellfish derived [Shellfish] Allergy Anaphylaxis Verified 01/26/23 19:05 aripiprazole [From Abilify] AdvReac numbness Verified 01/26/23 19:05 Physical Exam Vitals: Vital Signs Temp Pulse Pulse Resp BP BP Pulse Ox 01/28/23 08:28 94 115/74 01/28/23 07:00 98.2 F 92 16 110/50 99 01/27/23 19:33 95 118/73 01/27/23 17:15 98.5 F 91 16 125/78 98 01/27/23 16:57 98.6 F 78 18 119/77 98 Intake and Output 01/27/23 01/28/23 01/28/23 22:59 06:59 14:59 Other: Weight 56.699 kg Cranial Nerve Examination - Cranial Nerves Cranial Nerve II- Optic: Intact (Cranial nerve II through XII intact) Cranial Nerve III- Oculomotor: Intact Cranial Nerve IV- Trochlear: Intact Cranial Nerve V- Trigeminal: Intact Cranial Nerve - Abducens: Intact Cranial Nerve VII- Facial: Intact Cranial Nerve VIII- Auditory: Intact Cranial Nerve IX- Glossopharyngeal: Intact Cranial Nerve X- Vagus: Intact Cranial Nerve XI- Accessory: Intact Cranial Nerve XII- Hypoglossal: Intact Results CBC & Chem 7: 01/28/23 10:55 01/28/23 10:55
[2023-01-28] MEDS ORDERED: LORazepam 1 MG TAB PO PRN (16:15)
[2023-01-28] MEDS ORDERED: ZIPRASIDONE 20 MG VIAL IM PRN (16:18)
[2023-01-28] MEDS ORDERED: ZIPRASIDONE 20 MG CAP PO PRN (16:18)
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
[2023-01-28] MEDS: hydrOXYzine pamoate 25 MG CAP PO PRN (16:31)
[2023-01-28 17:04] LABS: Chol/HDL Ratio 2.44 Ratio; LDL Cholesterol,Calculated 71.9 mg/dL (0.0-131.0); VLDL Calculation 9.48 mg/dL (5.00-40.00)
[2023-01-28] MEDS: SERTRALINE 50 MG TAB PO SCH (21:36)
[2023-01-28] MEDS: MELATONIN 3 MG TABLET PO SCH (21:36)
[2023-01-29] MEDS: hydrOXYzine pamoate 25 MG CAP PO PRN ×4 (03:25→21:51)
[2023-01-29] MEDS: NICOTINE 14MG/24HR PATCH TRANSDERM SCH (08:07)
[2023-01-29] MEDS: PROPRANOLOL 10 MG TAB PO SCH (13:18)
--- NOTE | 2023-01-29 13:39 | P.PN ---
Progress Note - Text Progress Note Date: 01/29/23 Interval History: Patient was seen today wandering the hallways and was agreeable to speak to wr karrie in the office. She states that she has been trying to go some groups. Patient was seen socializing with other patients on the unit. She appears to be less tired today and states that yesterday she slept most of the day. Claims that she is tolerating the Zoloft fairly well. She continues to be fairly superficial and focused on discharge. Continues to be argumentative. She states that she regrets coming the hospital, she signed an AMA last night. She denies any changes in her appetite, states that she slept poorly last night. At this time she is denying any suicidal or homicidal ideations intent or plan. Denying any auditory or visual hallucinations. Patient has been compliant with her medications. MENTAL STATUS EXAM: General Appearance: Patient appears to be then, braided hair, stated age is alert, argumentative. Patient appears to have mildly improving hygiene and grooming. Behavior: Patient is seated without any agitated behavior. Argumentative. Speech: Patient's speech is fluent and nonpressured. Loud at times and demanding Mood/Affect: Patient reports their mood is "a bit better", affect is congruent and constricted Suicidality/Homicidality: Patient denies having any homicidal ideation intent or plan. Denies any suicidal ideations intent or plan Perceptions: Patient denies any visual hallucinations and denies any auditory hallucinations Though content/process: There is no evidence of any delusional thought content and thought process is linear and goal-directed. Minimizing her symptoms, focused on discharge Memory and concentration: AOX3, grossly intact for the purposes of this session Judgment and insight: poor, superficial IMPRESSIONS: Depressive disorder unspecified cannabis use disorder nicotine dependence PLAN: -Patient is admitted under voluntary status to MHU for stabilization of psychiatric symptoms and safety. Patient has signed adult voluntary form andand is placed in patient's chart. -Medications : Zoloft 50 mg daily at bedtime for anxiety/mood, melatonin daily at bedtime for sleep. will consider mood stabilizer such as lamictal if patient is not improving. -vistaril, ativan and geodon PRN for agitation/aggression -NRT - nicotine patch -SW on board for discharge planning. Encourage patient to participate in groups to work on coping skills. likely discharge in 1-2 days back home.
[2023-01-29] MEDS: SERTRALINE 50 MG TAB PO SCH (21:51)
[2023-01-29 22:09] VITALS: BP 114/75; PULSE 89
[2023-01-30] MEDS: NICOTINE 14MG/24HR PATCH TRANSDERM SCH (07:42)
[2023-01-30] MEDS: hydrOXYzine pamoate 25 MG CAP PO PRN (07:43)
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
== END 2023-01-30 11:42 | disposition home or self-care (01) | DRG 880 ==
LOC: EC 18:14 → 3MHU 01-27 16:11
PROVIDERS: ADMIT Psychiatry & Neurology Psychiatry; ATTEND Psychiatry & Neurology Psychiatry
DX: R45.851 Suicidal ideations (principal); F32.A Depression, unspecified; Z11.52 Encounter for screening for COVID-19; F12.10 Cannabis abuse, uncomplicated; F43.22 Adjustment disorder with anxiety; F17.290 Nicotine dependence, other tobacco product, uncomplicated; Z71.6 Tobacco abuse counseling; Z56.0 Unemployment, unspecified; Z79.899 Other long term (current) drug therapy; Z88.8 Allergy status to other drugs, medicaments and biological substances; Z91.041 Radiographic dye allergy status; Z91.013 Allergy to seafood; Z71.41 Alcohol abuse counseling and surveillance of alcoholic; Z71.51 Drug abuse counseling and surveillance of drug abuser; Z81.8 Family history of other mental and behavioral disorders
CPT/HCPCS: 80053; 80061; 80306; 81003; 81025; 82075; 83036; 84443; 85025; 87635; 99285

== ENCOUNTER → 2023-04-29 | Day surgery (SDC) | payer BC ==
[~2023-04-29] MED LIST: SODIUM CHLORIDE 0.9% 1,000 ML IV SCH; SODIUM CHLORIDE 0.9% 500 ML 500 ML IV ONE
[2023-04-29 11:01] VITALS: BP 113/61; PULSE 63; RESP 16; TEMP 98.3
--- NOTE | 2023-04-29 16:04 | P.EPPROC ---
- EP Procedure Note Electrophysiology Procedure Note: Diagnosis Recurrent syncope Twelve-lead EKG shows sinus mechanism normal MO narrow QRS normal QT interval Patient was tilted upright at an angle of 70 per protocol Baseline blood pressure was 160/64 mmHg Baseline heart rate 58 beats a minute Patient's heart rate and blood pressure remained quite stable through the procedure There was no evidence for neurocardiogenic phenomena Minimal increase in heart rate Impression Normal 12-lead EKG Tilt table test showed normal heart rate and blood pressure response to upright tilting No clear-cut evidence for neurocardiogenic syncope or dysautonomia or orthostatic intolerance
== END ==
LOC: CATHEP 09:59
PROVIDERS: ATTEND Internal Medicine Clinical Cardiac Electrophysiology
DX: R55 Syncope and collapse (principal); R00.2 Palpitations; Z79.899 Other long term (current) drug therapy; Z91.013 Allergy to seafood; Z88.8 Allergy status to other drugs, medicaments and biological substances
CPT/HCPCS: 81025; 93660

== ENCOUNTER → 2023-10-06 | Outpatient (CLI) | payer BC ==
--- NOTE | 2023-10-06 10:02 | USB ---
Reason for Exam: Clinical finding. Technique: Method: Targeted. Findings: The lower outer quadrant of the right breast, the axilla of the right breast and the retroareolar of the right breast were scanned. No solid or cystic masses are identified.. Overall Assessment: Negative, BI-RAD 1 Management: Screening Mammogram of both breasts at age 42. A clinical breast exam by your physician is recommended on an annual basis and results should be correlated with mammographic findings. This exam should not preclude additional follow-up of suspicious palpable abnormalities. Results were given to the patient verbally at the time of exam. Electronically signed and approved by: Ton Brizuela M.D. Radiologis
== END | disposition home or self-care (01) ==
LOC: RADUSWWP 09:30
PROVIDERS: ATTEND Family Medicine
DX: N63.13 Unspecified lump in the right breast, lower outer quadrant (principal)